=== PATIENT | male | born 2000 | race Caucasian/White ===

== ENCOUNTER → 2018-12-05 | Outpatient (CLI) | payer BC ==
[2015-12-15 16:58] VITALS: BP 103/57
[~2018-12-05] MED LIST: ADVAIR IH; PREDNISONE10 M1 PO; PROMETHAZINE12.5 M5 PO; REGLAN10 M2 PO; SINGULAIR10 MG PO; TESSALON PERLE100 MG PO; VITAMIN D1000 IU PO; XOPENEX0.63 MG/3 IH; ZITHROMAX Z PA250 MG PO; ZOFRAN4 M2 PO; ZYRTEC10 M1 PO
[2018-12-05 11:31] LABS: EOS # 0.4 (0.04-0.40); EOS % 7.1 % (0.0-4.0); HEMATOCRIT 44.8 % (36.0-47.0); HEMOGLOBIN 15.3 g/dL (12.5-16.1); LYMPH# 1.6 (1.50-4.00); MEAN CELL VOLUME 82 fl (78-95); MEAN CORPUSCULAR HEMOGLOBIN 28 pg (26-32); MEAN CORPUSCULAR HGB CONC 34 g/dL (33-37); MEAN PLATELET VOLUME 9.8 fl (7.4-10.4); MONO # 0.5 (0.20-0.80); NEU # 2.4 (1.40-6.50); PLATELET COUNT 236 K/mm3 (130-400); RED BLOOD COUNT 5.46 M/mm3 (4.20-5.60); RED CELL DISTRIBUTION WIDTH 13.5 % (11.5-14.5); WHITE BLOOD COUNT 4.9 K/mm3 (4.8-10.8)
[2018-12-05 11:49] LABS: ALBUMIN 5.1 g/dL (3.5-5.0)
[2018-12-05 11:50] LABS: CALCIUM 10.2 mg/dL (8.3-10.5)
[2018-12-05 11:52] LABS: TOTAL PROTEIN 8.5 g/dL (6.4-8.3)
[2018-12-05 11:53] LABS: TOTAL BILIRUBIN 1.6 mg/dL (0.2-1.2)
== END ==
LOC: LAB 11:18
DX: R42 Dizziness and giddiness (principal); R51 Headache; R63.4 Abnormal weight loss

== ENCOUNTER → 2018-12-09 | Outpatient (CLI) | payer BC ==
[2015-12-15 16:58] VITALS: BP 103/57
== END ==
LOC: LAB 13:07
DX: R42 Dizziness and giddiness (principal); R51 Headache; R63.4 Abnormal weight loss
CPT/HCPCS: 83993

== ENCOUNTER → 2018-12-12 | Day surgery (SDC) | payer BC ==
[2015-12-15 16:58] VITALS: BP 103/57
== END ==
LOC: MSO 09:05
DX: R19.7 Diarrhea, unspecified (principal); K21.9 Gastro-esophageal reflux disease without esophagitis; K31.84 Gastroparesis; K21.0 Gastro-esophageal reflux disease with esophagitis; J45.909 Unspecified asthma, uncomplicated; F32.1 Major depressive disorder, single episode, moderate; F41.9 Anxiety disorder, unspecified; F32.9 Major depressive disorder, single episode, unspecified; Z88.6 Allergy status to analgesic agent; Z82.5 Family history of asthma and other chronic lower respiratory diseases; Z83.79 Family history of other diseases of the digestive system
CPT/HCPCS: 00813; J2704; J3010; J7120

== ENCOUNTER 2019-03-02 20:40 | Emergency (ER) | payer BC ==
[~2019-03-02] VITALS: Ht 188 cm; Wt 81.5 kg
[2019-03-02] MEDS ORDERED: PAXIL20 M1 PO (20:48)
[2019-03-02] MEDS ORDERED: ERYTHROCIN STE250 M2 PO (20:48)
[2019-03-02] MEDS ORDERED: PRILOSEC 20MG20 MG PO (20:49)
[2019-03-02 22:00] VITALS: BP 128/81
== END 2019-03-02 22:00 | disposition home or self-care (01) ==
LOC: ED 20:40
DX: R04.0 Epistaxis (principal); F41.9 Anxiety disorder, unspecified; F32.9 Major depressive disorder, single episode, unspecified; K31.84 Gastroparesis

== ENCOUNTER 2019-09-22 13:41 | Emergency (ER) | payer BC ==
[~2019-09-22] VITALS: Ht 188 cm; Wt 94.5 kg
[~2019-09-22 13:41] MED LIST changes: +ERYTHROCIN STE250 M2 PO; +PAXIL20 M1 PO; +PRILOSEC 20MG20 MG PO
[2019-09-22 14:34] LABS: EOS # 0.3 (0.04-0.40); EOS % 4.9 % (0.0-4.0); HEMOGLOBIN 14.5 g/dL (13.5-18.0); LYMPH# 1.8 (1.50-4.00); MEAN CELL VOLUME 86 fl (78-100); MEAN CORPUSCULAR HEMOGLOBIN 28 pg (27-31); MEAN CORPUSCULAR HGB CONC 33 g/dL (33-37); MEAN PLATELET VOLUME 9.6 fl (7.4-10.4); MONO # 0.5 (0.20-0.80); NEU # 3.1 (1.40-6.50); PLATELET COUNT 223 K/mm3 (130-400); RED BLOOD COUNT 5.13 M/mm3 (4.20-5.60); RED CELL DISTRIBUTION WIDTH 13.6 % (11.5-14.5); WHITE BLOOD COUNT 5.7 K/mm3 (4.8-10.8)
[2019-09-22 14:50] LABS: ALBUMIN 4.5 g/dL (3.5-5.0); POTASSIUM 4.7 mmol/L (3.5-5.1)
[2019-09-22 14:51] LABS: CALCIUM 9.3 mg/dL (8.3-10.5)
[2019-09-22 14:52] LABS: TOTAL PROTEIN 7.3 g/dL (6.4-8.3)
[2019-09-22 14:54] LABS: TOTAL BILIRUBIN 0.5 mg/dL (0.2-1.2)
[2019-09-22 15:56] LABS: URINE APPEARANCE CLEAR; URINE COLOR YELLOW
[2019-09-22 15:57] LABS: URINE BILIRUBIN NEGATIVE (NEGATIVE); URINE BLOOD NEGATIVE (NEGATIVE); URINE GLUCOSE NEGATIVE (NEGATIVE); URINE KETONE NEGATIVE (NEGATIVE); URINE LEUKOCYTE ESTERASE NEGATIVE (NEGATIVE); URINE NITRATE NEGATIVE (NEGATIVE); URINE PROTEIN(semi-quant) NEGATIVE (NEGATIVE); URINE UROBILINOGEN NORMAL (NORMAL); URINE WBC 0 /hpf (0-3)
[2019-09-22 16:30] VITALS: BP 122/71
== END 2019-09-22 16:36 | disposition home or self-care (01) ==
LOC: ED 13:41
PROVIDERS: Nurse Practitioner Primary Care
DX: R10.31 Right lower quadrant pain (principal); Z53.21 Procedure and treatment not carried out due to patient leaving prior to being seen by health care provider
CPT/HCPCS: J2270; J2405; Q9967

== ENCOUNTER → 2020-03-06 | Outpatient (CLI) | payer BC | LOC: LAB 09:07 | DX: Z03.89 Encounter for observation for other suspected diseases and conditions ruled out (principal); Z20.822 Contact with and (suspected) exposure to COVID-19 ==

== ENCOUNTER → 2020-04-16 | Outpatient (CLI) | payer BC ==
[2020-04-17 01:56] LABS: SYPHILIS AB SCREEN w REFLEX Negative (Negative)
== END ==
LOC: LAB 09:42
PROVIDERS: Physician Assistant
DX: R30.9 Painful micturition, unspecified (principal)

== ENCOUNTER → 2020-10-08 | Outpatient (CLI) | payer BC ==
[~2020-10-08] VITALS: Ht 202 cm; Wt 94.5 kg
[2020-10-08 15:29] VITALS: BP 129/81
[2020-10-08 16:30] VITALS: BP 113/61
== END ==
LOC: AMSURD 14:52
DX: K31.84 Gastroparesis (principal)
CPT/HCPCS: J2765; J7030

== ENCOUNTER → 2021-01-12 | Outpatient (CLI) | payer BC | LOC: LAB 17:58 | DX: Z20.822 Contact with and (suspected) exposure to COVID-19 (principal) ==

== ENCOUNTER → 2021-07-14 | Outpatient (CLI) | payer OTHER ==
[2021-07-14 10:05] LABS: BASO # 0.02 K/mm3 (0.02-0.10); EOS # 0.31 K/mm3 (0.04-0.40); EOS % 6.1 % (0.0-4.0); HEMATOCRIT 40.5 % (42.0-52.0); HEMOGLOBIN 13.5 g/dL (13.5-18.0); LYMPH# 1.47 K/mm3 (1.50-4.00); MEAN CELL VOLUME 85 fl (78-100); MEAN CORPUSCULAR HEMOGLOBIN 28 pg (27-31); MEAN CORPUSCULAR HGB CONC 33 g/dL (33-37); MEAN PLATELET VOLUME 9.3 fl (7.4-10.4); MONO # 0.38 K/mm3 (0.20-0.80); NEU # 2.94 K/mm3 (1.40-6.50); PLATELET COUNT 219 K/mm3 (130-400); RED BLOOD COUNT 4.76 M/mm3 (4.20-5.60); RED CELL DISTRIBUTION WIDTH 13.1 % (11.5-14.5); WHITE BLOOD COUNT 5.1 K/mm3 (4.8-10.8)
[2021-07-14 10:23] LABS: ALBUMIN 4.3 g/dL (3.5-5.0); POTASSIUM 4.4 mmol/L (3.5-5.1)
[2021-07-14 10:24] LABS: CALCIUM 9.6 mg/dL (8.3-10.5)
[2021-07-14 10:26] LABS: TOTAL PROTEIN 7.1 g/dL (6.4-8.3)
[2021-07-14 10:28] LABS: TOTAL BILIRUBIN 0.6 mg/dL (0.2-1.2)
[2021-07-14 23:44] LABS: HEPATITIS B CORE AB TOTAL Negative (Negative); HEPATITIS B SURFACE ANTIBODY <2.0 (()); HEPATITIS B SURFACE ANTIGEN Negative (Negative); HEPATITIS C VIRUS ANTIBODY Negative (Negative)
== END ==
LOC: LAB 09:33
PROVIDERS: Internal Medicine
DX: Z00.00 Encounter for general adult medical examination without abnormal findings (principal)